=== PATIENT | male | born 1950 | race Caucasian/White ===

== ENCOUNTER → 2021-04-21 | Outpatient (CLI) | payer MEDICARE, OTHER ==
[2021-04-21 15:27] LABS: BASO # 0.1 x10^3/uL (0.0-0.2); BASO % 1 % (0-3); EOS # 0.2 x10^3/uL (0.0-0.7); EOS % 2 % (0-3); HEMATOCRIT 46.5 % (39.0-53.0); LYMPH # 2.2 x10^3/uL (1.0-4.8); LYMPH % 24 % (24-48); MEAN CORPUSCULAR HEMOGLOBIN 31 pg (25-35); MEAN CORPUSCULAR HGB CONC 34 g/dL (31-37); MEAN CORPUSCULAR VOLUME 90 fL (79-100); MONO # 0.6 x10^3/uL (0.0-1.1); MONO % 6 % (0-9); NEUT # 6.1 x10^3/uL (1.8-7.7); NEUT % 67 % (31-73); PLATELET COUNT 510 x10^3/uL (140-400); RED BLOOD COUNT 5.17 x10^6/uL (4.30-5.70); RED CELL DISTRIBUTION WIDTH 14.7 % (11.5-14.5); WHITE BLOOD COUNT 9.2 x10^3/uL (4.0-11.0)
[2021-04-21 15:28] LABS: BILIRUBIN,URINE NEGATIVE (NEG); CLARITY,URINE CLEAR; COLOR,URINE YELLOW; NITRITE,URINE NEGATIVE (NEG); PH,URINE 5.5 (<5.0-8.0); PROTEIN,URINE NEGATIVE (NEG-TRACE); UROBILINOGEN,URINE 0.2 mg/dL (0.2 mg/dL)
[2021-04-21 15:46] LABS: CALCIUM 9.6 mg/dL (8.5-10.1); CREATININE 1.3 mg/dL (0.7-1.3); GFR 54.9; POTASSIUM 3.8 mmol/L (3.5-5.1)
[2021-04-21 15:51] LABS: ALBUMIN 4.3 g/dL (3.4-5.0); ALBUMIN/GLOBULIN RATIO 1.2 (1.0-1.7); TOTAL BILIRUBIN 0.3 mg/dL (0.2-1.0); TOTAL PROTEIN 7.9 g/dL (6.4-8.2)
[2021-04-21 16:22] LABS: BACTERIA,URINE FEW /HPF (0-FEW)
== END ==
LOC: ONCLAB 14:55
PROVIDERS: ATTEND Internal Medicine Hematology & Oncology
DX: Z12.5 Encounter for screening for malignant neoplasm of prostate (principal); C34.32 Malignant neoplasm of lower lobe, left bronchus or lung; R31.9 Hematuria, unspecified
CPT/HCPCS: 36415; 80053; 81001; 85025; G0103

== ENCOUNTER → 2021-04-25 | Outpatient (CLI) | payer MEDICARE, OTHER ==
[~2021-04-25] MED LIST: IOHEXOL 240 MG/ML 50ML VIAL. PO ONE; IOHEXOL 300 MG/ML 100ML VIAL. IV ONE
--- NOTE | 2021-04-25 19:14 | RAD ---
CT scan of the chest, abdomen and pelvis with contrast 04/25/2021 CLINICAL HISTORY: Lung cancer. TECHNIQUE: After the oral and intravenous administration of contrast, contiguous, 5 mm axial sections were obtained through the chest, abdomen and pelvis. 60 cc Omnipaque 300 were administered intraveno usly this examination. One or more of the following individualized dose reduction techniques were utilized for this study: 1. Automated exposure control. 2. Adjustment of the mA and/or kV according to patient size. 3. Use of iterative reconstruction technique. FINDINGS: No previous studies are available for comparison. The patient is post left lower lobectomy. No hilar, mediastinal or axillary lymphadenopathy is seen. Atherosclerotic calcification of the thoracic aorta and its branches is noted. The thoracic aorta is mildly tortuous but tapers normally. The heart is normal in size. Subsegmental atelectasis and/or scarring is seen involving the left lower lobe and inferior left uppe r lobe. No recurrent mass is seen. No area of consolidation, pneumothorax or pleural effusion is note d. The liver parenchyma has a decreased attenuation consistent with fatty saturation. The spleen, pancre as, and adrenal glands are within normal limits. Rounded low-attenuation lesions are seen involving b oth kidneys, right greater than left, which measure 1 to 10 cm in size. These likely represent cysts. No further imaging evaluation is recommended. Nonobstructing calculi are seen involving both kidneys . These measure 2 to 5 mm in size. Atherosclerotic calcification abdominal aorta is seen. The abdominal aorta tapers normally. No retrop eritoneal lymphadenopathy is seen. The gallbladder is contracted. No free fluid or free air is seen w ithin the abdomen. There is no evidence of bowel obstruction. The appendix is well-visualized and is within normal limits. Images through pelvis demonstrate the urinary bladder distended with urine. The prostate gland is enl arged likely related to BPH. Calcifications are seen within the prostate gland. Calcifications are se en within the pelvis consistent with phleboliths. No pelvic or inguinal lymphadenopathy is seen. Very mild S-shaped curvature of the thoracolumbar spine is seen. Degenerative changes are seen involving the thoracic and throughout the lumbar spine. Old healed left-sided rib fractures are noted. The rodríguez ent is post laminectomy, discectomy and fusion using pedicle screws, stabilizing rods and bone graft material at L4-5. IMPRESSION: There is no CT evidence of recurrent or metastatic disease involving the chest, abdomen o r pelvis. Electronically signed by: Nikita Lee MD (04/25/2021 7:11 PM) [id number]
== END ==
LOC: CT 11:50
PROVIDERS: ATTEND Internal Medicine Hematology & Oncology
DX: C34.32 Malignant neoplasm of lower lobe, left bronchus or lung (principal); N20.0 Calculus of kidney; J98.11 Atelectasis; I70.0 Atherosclerosis of aorta; K82.0 Obstruction of gallbladder; N32.89 Other specified disorders of bladder; N42.89 Other specified disorders of prostate
CPT/HCPCS: 71260; 74177; Q9966; Q9967

== ENCOUNTER 2021-06-11 03:08 | Emergency (ER) | payer MEDICARE, OTHER ==
[~2021-06-11] VITALS: Ht 177.8 cm; Wt 91.0 kg
[2021-06-11] MEDS ORDERED: MORPHINE SULFATE 4 MG/ML INJ. IVP ONE (03:30)
--- NOTE | 2021-06-11 03:39 | PHYS DOC ---
General Adult EDM: Chief Complaint: MECHANICAL FALL HPI: HPI: Patient is a 70 year old male who presents with neck pain and back pain after a fall from a ladder. States that he is probably 5 feet in the air when he fell backwards. States he hit his head on the way down on a table, then hit his head again on the floor. States he did lose consciousness. He is unsure for how long. Woke up on the floor with neck pain and back pain. Neck pain and back pain is worsened since the fall happened approximately 10 AM on 06/10. States that he had brief tingling in his lower extremities, but not his upper extremities. This is resolved. States that all 4 extremities feel slightly weaker than usual. Denies any shortness of breath or anterior chest pain. He has been able to ambulate since the fall. Review of Systems: Review of Systems: Constitutional: Denies fever or chills. [] Eyes: Denies change in visual acuity. [] HENT: Denies nasal congestion or sore throat. [] Respiratory: Denies cough or shortness of breath. [] Cardiovascular: Denies chest pain or edema. [] GI: Denies abdominal pain, nausea, vomiting, bloody stools or diarrhea. [] : Denies dysuria. [] Musculoskeletal: Reports neck pain, back pain, pelvic pain. Integument: Denies rash. [] Neurologic: Reports headache and loss of consciousness. Reports now resolved sensory changes and generalized weakness. Endocrine: Denies polyuria or polydipsia. [] Lymphatic: Denies swollen glands. [] Psychiatric: Denies depression or anxiety. [] Heart Score: C/O Chest Pain: No Risk Factors: Risk Factors: DM, Current or recent (<one month) smoker, HTN, HLP, family history of CAD, obesity. Risk Scores: Score 0 - 3: 2.5% MACE over next 6 weeks - Discharge Home Score 4 - 6: 20.3% MACE over next 6 weeks - Admit for Clinical Observation Score 7 - 10: 72.7% MACE over next 6 weeks - Early Invasive Strategies Current Medications: Current Medications Medications (Trade) Dose Ordered Sig/Royal Start Time Stop Time Status Last Admin Dose Admin Morphine Sulfate (Morphine Sulfate) 4 mg 1X ONCE 06/11/21 03:30 06/11/21 03:31 UNV Allergies: Allergies: Allergies Uncoded Allergies Type Severity Reaction Last Updated Verified CODIENE Allergy Intermediate 04/25/21 PENICILLIN Allergy Intermediate 04/25/21 Physical Exam: PE: Constitutional: Well developed, well nourished, no acute distress, non-toxic appearance. [] Eyes: PERRLA, EOMI, conjunctiva normal, no discharge. [] Neck: C-spine immobilized in collar Cardiovascular:Heart rate regular rhythm, no murmur [] Lungs & Thorax: Bilateral breath sounds clear to auscultation [] Abdomen: Bowel sounds normal, soft, no tenderness, no masses, no pulsatile masses. [] Skin: Warm, dry, no erythema, no rash. [] Back: Thoracic midline tenderness to palpation, no lumbar tenderness to palpation, but does report lumbar pain. Extremities: Normal ROM hips, knees, shoulders, elbows, wrists, ankles. Does complain of pain over the greater trochanters bilaterally as well as over the pubic symphysis with pressure. Neurologic: Alert and oriented X 3, normal motor function, normal sensory function, no focal deficits noted. 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 [] EKG: EKG: [] Radiology/Procedures: Radiology/Procedures: [] Impression: [facility] [address] [place] [address] IMAGING REPORT Signed PATIENT: AYDEN BURGOS ACCOUNT: [id number] : 1950 LOCATION: ER AGE: 70 SEX: M EXAM STATUS: REG ER ORD. PHYSICIAN: GIOVANA CAMPOS MD REASON: fall, loc, neck, back, pelvic pain PROCEDURE: CT HEAD AND CERVICAL SPINE WO CT Head W/O Contrast: History: Reason: fall, loc, neck, back, pelvic pain / Spl. Instructions: / History: Comparison: none Axial images were obtained without contrast. There is mild diffuse atrophy. There is no mass effect, extraaxial fluid collections or hydrocephalus. There is no focal loss of marie-white matter distinction to suggest acute ischemia, i.e. stroke. Impression: No acute findings. End impression CT C-Spine without contrast: Clinical History: Reason: fall, loc, neck, back, pelvic pain / Spl. Instructions: / History: Technique: Axial helical images of the cervical spine were obtained without contrast, axial coronal and sagittal reconstruction was performed. Findings: There is beam Alejandro artifact from hardware from prior anterior fusion of C3-C5 with overlying plate and screws and intervertebral device at C3-C4 and C4-C5. There is no loss of vertebral body stature. There is no prevertebral soft tissue swelling. The vertebral bodies are well aligned. The C1-C2 relationship is normal. The visualized osseous structures appear normal. Evaluation of the central canal is limited without contrast. There is multiple posterior disc bulges resulting in flattening of the thecal sac. There does not appear to be gross flattening of the cervical cord. There is marked narrowing of multiple neuroforamen. Impression: No acute findings. Clinical correlation suggested. PQRS Compliance Statement: One or more of the following individualized dose reduction techniques were utilized for this examination: 1. Automated exposure control 2. Adjustment of the mA and/or kV according to patient size 3. Use of iterative reconstruction technique Electronically signed by: Stephanie Gilbert III, MD (06/11/2021 4:36 AM) [facility] DICTATED and SIGNED BY: STEPHANIE GILBERT III, MD DATE: 06/11/21 [id number] [facility] [address] [place], [place] [id number] IMAGING REPORT Signed PATIENT: AYDEN BURGOS ACCOUNT: [id number] : 1950 LOCATION: ER AGE: 70 SEX: M EXAM STATUS: REG ER ORD. PHYSICIAN: GIOVANA CAMPOS MD REASON: fall, loc, neck, back, pelvic pain, HX LT LUNG CA AND SX TO LT LUNG, PROCEDURE: CT CHEST ABDOMEN PELVIS WO CT chest abdomen and pelvis without contrast: History: Pain status post fall Axial helical images of the chest, abdomen and pelvis were obtained without IV contrast. Comparison: none CT chest without contrast: There is diffuse emphysematous changes in the lungs. Linear opacities lung bases posteriorly is likely scar. There is a 3 mm pulmonary nodule right lower lobe. Similarly there is a 3 mm pulmonary nodule left upper lobe. There is no mediastinal lymphadenopathy or hematoma. There is no hilar lymphadenopathy. Impression: Pulmonary nodules could be noncalcified granuloma. Recommend a 6 month follow-up CT chest without contrast. End Impression CT ABDOMEN and pelvis without IV CONTRAST: Findings: Liver: Unremarkable Spleen: Unremarkable Pancreas: Unremarkable Adrenal Glands: Unremarkable Kidneys: There are small nonobstructive stones the renal pelvises bilaterally. There is an exophytic cyst arising from upper pole right kidney that measures 9.9 x 5.9 cm. Evaluation of stomach and bowel is limited without oral contrast. Evaluation of solid organs is limited without IV contrast. There is no mass or lymphadenopathy. There is no free air. There is no free fluid. The bladder appears normal. The prostate is mildly enlarged. The appendix is normal. The gallbladder appears normal. Impression: No acute findings. End impression PQRS Compliance Statement: One or more of the following individualized dose reduction techniques were utilized for this examination: 1. Automated exposure control 2. Adjustment of the mA and/or kV according to patient size 3. Use of iterative reconstruction technique Electronically signed by: Stephanie Gilbert III, MD (06/11/2021 4:44 AM) [facility] DICTATED and SIGNED BY: STEPHANIE GILBERT III, MD DATE: 06/11/21 [id number] Course & Med Decision Making: Course & Med Decision Making Pertinent Labs and Imaging studies reviewed. (See chart for details) Patient is 70-year-old male who presents with a fall from a ladder with head strike, LOC, neck pain, back pain, and pelvic tenderness to palpation. We will obtain CT head, neck, chest, abdomen, pelvis. 0338 CT without acute process. Will attempt to treat pain, road test, and hope to discharge. Patient and updated about pulmonary nodules and need for follow up. 0518 Lisa Disclaimer: Lisa Disclaimer: This electronic medical record was generated, in whole or in part, using a voice recognition dictation system. Departure Departure Impression: Primary Impression: Neck pain Additional Impressions: Back pain Fall from ladder Disposition: 01 HOME / SELF CARE / HOMELESS Condition: STABLE Referrals: UNKNOWN PCP NAME (PCP) Additional Instructions: There is a 3 mm pulmonary nodule right lower lobe. Similarly there is a 3 mm pulmonary nodule left upper lobe. Our radiologist recommends a follow up CT in 6 months. Please follow up with your primary care provider. Otherwise, your CT scan did not show any fractures or serious problems from your fall today. You likely have some bruising and muscular strains contributing to your pain. For pain please take Tylenol 1000 mg every 6 hours. For pain not controlled by Tylenol: -Oxycodone 5 mg every 4 hours as needed. This is a narcotic medication and can make you tired and impaired. Do not drive or operate machinery while taking oxycodone. It can also make you consitpated so please consider taking docusate and miralax (as directed by over the counter directions) to prevent constipation. Please try to take as little oxycodone as possible and wean yourself off as soon as you are able because it is an addictiv e medication. Scripts Oxycodone Hcl (OXYCODONE HCL) 5 Mg Capsule 5 MG PO PRN Q4-6HRS PRN for PAIN, #15 TAB 0 Refills Prov: GIOVANA CAMPOS MD 06/11/21 GIOVANA CAMPOS MD Jun 11, 2021 03:38
[2021-06-11 03:44] LABS: HEMATOCRIT 43.5 % (39.0-53.0); HEMOGLOBIN 14.9 g/dL (13.0-17.5); RED BLOOD COUNT 4.84 x10^6/uL (4.30-5.70); RED CELL DISTRIBUTION WIDTH 14.7 % (11.5-14.5); WHITE BLOOD COUNT 9.4 x10^3/uL (4.0-11.0)
[2021-06-11 03:56] LABS: CALCIUM 8.8 mg/dL (8.5-10.1); CREATININE 1.6 mg/dL (0.7-1.3); GFR 43.2; POTASSIUM 4.1 mmol/L (3.5-5.1)
--- NOTE | 2021-06-11 04:39 | RAD ---
CT Head W/O Contrast: History: Reason: fall, loc, neck, back, pelvic pain / Spl. Instructions: / History: Comparison: none Axial images were obtained without contrast. There is mild diffuse atrophy. There is no mass effect, extraaxial fluid collections or hydrocephalu s. There is no focal loss of marie-white matter distinction to suggest acute ischemia, i.e. stroke. Impression: No acute findings. End impression CT C-Spine without contrast: Clinical History: Reason: fall, loc, neck, back, pelvic pain / Spl. Instructions: / History: Technique: Axial helical images of the cervical spine were obtained without contrast, axial coronal and sagittal reconstruction was performed. Findings: There is beam Alejandro artifact from hardware from prior anterior fusion of C3-C5 with overlying plate and screws and intervertebral device at C3-C4 and C4-C5. There is no loss of vertebral body stature. There is no prevertebral soft tissue swelling. The vert ebral bodies are well aligned. The C1-C2 relationship is normal. The visualized osseous structures a ppear normal. Evaluation of the central canal is limited without contrast. There is multiple posterio r disc bulges resulting in flattening of the thecal sac. There does not appear to be gross flattening of the cervical cord. There is marked narrowing of multiple neuroforamen. Impression: No acute findings. Clinical correlation suggested. PQRS Compliance Statement: One or more of the following individualized dose reduction techniques were utilized for this examinat ion: 1. Automated exposure control 2. Adjustment of the mA and/or kV according to patient size 3. Use of iterative reconstruction technique Electronically signed by: Ace Block III, MD (06/11/2021 4:36 AM) [facility]
--- NOTE | 2021-06-11 04:47 | RAD ---
CT chest abdomen and pelvis without contrast: History: Pain status post fall Axial helical images of the chest, abdomen and pelvis were obtained without IV contrast. Comparison: none CT chest without contrast: There is diffuse emphysematous changes in the lungs. Linear opacities lung bases posteriorly is likel y scar. There is a 3 mm pulmonary nodule right lower lobe. Similarly there is a 3 mm pulmonary nodule left up per lobe. There is no mediastinal lymphadenopathy or hematoma. There is no hilar lymphadenopathy. Impression: Pulmonary nodules could be noncalcified granuloma. Recommend a 6 month follow-up CT chest without con trast. End Impression CT ABDOMEN and pelvis without IV CONTRAST: Findings: Liver: Unremarkable Spleen: Unremarkable Pancreas: Unremarkable Adrenal Glands: Unremarkable Kidneys: There are small nonobstructive stones the renal pelvises bilaterally. There is an exophytic cyst arising from upper pole right kidney that measures 9.9 x 5.9 cm. Evaluation of stomach and bowel is limited without oral contrast. Evaluation of solid organs is limit ed without IV contrast. There is no mass or lymphadenopathy. There is no free air. There is no free fluid. The bladder appears normal. The prostate is mildly enlarged. The appendix is normal. The gallbladder appears normal. Impression: No acute findings. End impression PQRS Compliance Statement: One or more of the following individualized dose reduction techniques were utilized for this examinat ion: 1. Automated exposure control 2. Adjustment of the mA and/or kV according to patient size 3. Use of iterative reconstruction technique Electronically signed by: Ace Block III, MD (06/11/2021 4:44 AM) [facility]
[2021-06-11] MEDS ORDERED: MORPHINE SULFATE 10 MG/ML VIAL. IVP ONE (05:15)
[2021-06-11 05:20] VITALS: BP 169/90
[2021-06-11] MEDS ORDERED: OXYC5CAP PO (05:27)
== END 2021-06-11 05:40 | disposition home or self-care (01) ==
LOC: ER 03:08
DX: M54.2 Cervicalgia (principal); M54.9 Dorsalgia, unspecified; R10.2 Pelvic and perineal pain; G89.11 Acute pain due to trauma; R53.1 Weakness; W11.XXXA Fall on and from ladder, initial encounter; Y93.89 Activity, other specified; Y92.89 Other specified places as the place of occurrence of the external cause; Y99.8 Other external cause status
CPT/HCPCS: 36415; 70450; 71250; 72125; 74176; 80048; 85027; 96374; 96376; 99284; J2270

== ENCOUNTER → 2021-08-01 | Outpatient (CLI) | payer MEDICARE, OTHER ==
[~2021-08-01] MED LIST changes: +CONTRAST GIVEN. MC PRN; +OXYC5CAP PO
--- NOTE | 2021-08-01 15:13 | RAD ---
EXAMINATION: CT chest, abdomen and pelvis with IV contrast. INDICATION:70 years, Male, lung cancer. Follow-up exam. TECHNIQUE: Axial CT images of the chest, abdomen and pelvis were obtained. Coronal and sagittal refor matted performed. COMPARISON: 04/25/2021. Exposure: One or more of the following individualized dose reduction techniques were utilized for thi s examination: 1. Automated exposure control 2. Adjustment of the mA and/or kV according to patient size 3. Use of iterative reconstruction technique. FINDINGS: CHEST: Central airways are patent. Unchanged mild pulmonary emphysema. Linear scarring in bibasilar lungs, u nchanged. No focal consolidation, pleural effusion or pneumothorax. Stable bilateral sub-5 mm solid p ulmonary nodules for example, 4 mm nodule in the left upper lobe. 4 mm nodule in the right lower lobe . Normal caliber thoracic aorta. Mesenteric arteries and portal vein are patent. Minimal coronary arter y atherosclerotic calcifications. No lymphadenopathy in the chest by size criteria. Unremarkable visu alized thyroid gland and esophagus. ABDOMEN/PELVIS: Diffuse hepatic steatosis. No suspicious focal hepatic lesion. Gallbladder, biliary ducts, spleen and pancreas are unremarkable. No adrenal nodule. Stable 9.7 x 6.0 cm simple right renal cyst. Additiona l, simple smaller bilateral renal cortical cysts are unchanged. Similar punctate nonobstructing bilat eral nephrolithiasis. No bowel obstruction. No lymphadenopathy. Mild aortoiliac atherosclerotic calcifications without dila tion or narrowing. Mesenteric arteries and portal vein are patent. No pneumoperitoneum or ascites. Un remarkable urinary bladder. Prostamegaly indents bladder base. MUSCULOSKELETAL STRUCTURES: No acute osseous process or suspicious lesion. Multilevel degenerative changes in the spine. Posterio r hardware fusion in the lower lumbar spine. Chronic left rib deformity. IMPRESSION: 1. No evidence of recurrent or metastatic disease. 2. Stable bilateral sub-5 mm pulmonary nodules. Continued attention follow-up examination. 3. Hepatic steatosis. 4. Bilateral renal cysts and nephrolithiasis. 5. Prostatomegaly. Electronically signed by: Sydnye Saha MD (08/01/2021 3:11 PM) [facility]
== END ==
LOC: CT 08:30
PROVIDERS: ATTEND Internal Medicine Hematology & Oncology
DX: R91.8 Other nonspecific abnormal finding of lung field (principal); K76.0 Fatty (change of) liver, not elsewhere classified; N40.0 Benign prostatic hyperplasia without lower urinary tract symptoms; N28.1 Cyst of kidney, acquired; N20.0 Calculus of kidney; J43.9 Emphysema, unspecified; M95.4 Acquired deformity of chest and rib; M47.819 Spondylosis without myelopathy or radiculopathy, site unspecified; Z98.1 Arthrodesis status
CPT/HCPCS: 71260; 74177; Q9966; Q9967

== ENCOUNTER → 2021-08-03 | Outpatient (CLI) | payer MEDICARE, OTHER ==
[~2021-08-03] MED LIST changes: -CONTRAST GIVEN. MC PRN; -IOHEXOL 240 MG/ML 50ML VIAL. PO ONE; -IOHEXOL 300 MG/ML 100ML VIAL. IV ONE
[2021-08-03 11:40] LABS: BASO # 0.1 x10^3/uL (0.0-0.2); BASO % 1 % (0-3); EOS # 0.1 x10^3/uL (0.0-0.7); EOS % 1 % (0-3); HEMATOCRIT 45.1 % (39.0-53.0); HEMOGLOBIN 15.5 g/dL (13.0-17.5); LYMPH # 1.8 x10^3/uL (1.0-4.8); LYMPH % 23 % (24-48); MEAN CORPUSCULAR HEMOGLOBIN 31 pg (25-35); MEAN CORPUSCULAR HGB CONC 34 g/dL (31-37); MEAN CORPUSCULAR VOLUME 90 fL (79-100); MONO # 0.6 x10^3/uL (0.0-1.1); MONO % 7 % (0-9); NEUT # 5.3 x10^3/uL (1.8-7.7); NEUT % 68 % (31-73); PLATELET COUNT 376 x10^3/uL (140-400); RED BLOOD COUNT 5.04 x10^6/uL (4.30-5.70); WHITE BLOOD COUNT 7.8 x10^3/uL (4.0-11.0)
[2021-08-03 11:48] LABS: CALCIUM 9.1 mg/dL (8.5-10.1); CREATININE 1.4 mg/dL (0.7-1.3); GFR 50.4; POTASSIUM 4.1 mmol/L (3.5-5.1)
[2021-08-03 11:55] LABS: ALBUMIN 4.1 g/dL (3.4-5.0); TOTAL BILIRUBIN 0.4 mg/dL (0.2-1.0); TOTAL PROTEIN 8.1 g/dL (6.4-8.2)
== END ==
LOC: ONCLAB 11:13
PROVIDERS: ATTEND Internal Medicine Hematology & Oncology
DX: C61 Malignant neoplasm of prostate (principal); C34.32 Malignant neoplasm of lower lobe, left bronchus or lung
CPT/HCPCS: 80053; 84153; 84154; 85025

== ENCOUNTER → 2021-10-30 | Outpatient (CLI) | payer MEDICARE, OTHER ==
[~2021-10-30] MED LIST changes: +CONTRAST GIVEN. MC PRN; +IOHEXOL 240 MG/ML 50ML VIAL. PO ONE; +IOHEXOL 300 MG/ML 100ML VIAL. IV ONE
--- NOTE | 2021-10-30 14:52 | RAD ---
EXAMINATION: CT chest, abdomen and pelvis with IV contrast. INDICATION:70 years, Male, pulmonary adenocarcinoma. Follow-up exam. TECHNIQUE: Axial CT images of the chest, abdomen and pelvis were obtained. Coronal and sagittal refor matted performed. COMPARISON: 08/01/2021 and multiple priors. Exposure: One or more of the following individualized dose reduction techniques were utilized for thi s examination: 1. Automated exposure control 2. Adjustment of the mA and/or kV according to patient size 3. Use of iterative reconstruction technique. FINDINGS: CHEST: Central airways are patent. Unchanged mild pulmonary emphysema. Linear scarring in bibasilar lungs, u nchanged. No focal consolidation, pleural effusion or pneumothorax. Stable bilateral sub-5 mm solid p ulmonary nodules for example, 4 mm nodule in the left upper lobe. 4 mm nodule in the right lower lobe . No cardiomegaly or pericardial effusion. Mild coronary artery atherosclerotic calcifications. Normal caliber thoracic aorta and pulmonary arteries. No lymphadenopathy in the chest by size criteria. Calc ified paraesophageal lymph node. Unremarkable visualized thyroid gland and esophagus. ABDOMEN/PELVIS: Diffuse hepatic steatosis. No suspicious focal hepatic lesion. Gallbladder, biliary ducts, spleen and pancreas are unremarkable. Nodular thickening of the left adrenal gland without discrete nodule, unc hanged. Right adrenal gland is unremarkable. Stable 9.7 x 6.0 cm simple right renal cyst. Additional, simple smaller bilateral renal cortical cysts are unchanged. Similar nonobstructing bilateral nephro lithiasis, measuring up to 4 mm. No bowel obstruction. Normal appendix. No lymphadenopathy. Mild aortoiliac atherosclerotic calcificat ions without dilation or narrowing. Mesenteric arteries and portal vein are patent. No pneumoperitone um or ascites. Unremarkable urinary bladder. Prostamegaly indents bladder base. MUSCULOSKELETAL STRUCTURES: No acute osseous process or suspicious lesion. Multilevel degenerative changes in the spine. Posterio r hardware fusion in the lower lumbar spine. Chronic left rib deformity. Unchanged paraspinal/periaor tic fat stranding at the level of T11 vertebral body. IMPRESSION: 1. No evidence of recurrent or metastatic disease. 2. Stable bilateral sub-5 mm pulmonary nodules. Continued attention follow-up examination. 3. Other chronic/incidental findings, as described above. Electronically signed by: Sydney Saha MD (10/30/2021 2:49 PM) [facility]
== END ==
LOC: CT 10:28
PROVIDERS: ATTEND Physician Assistant
DX: R91.8 Other nonspecific abnormal finding of lung field (principal); K76.0 Fatty (change of) liver, not elsewhere classified; J43.9 Emphysema, unspecified; I25.10 Atherosclerotic heart disease of native coronary artery without angina pectoris; I70.8 Atherosclerosis of other arteries; N28.1 Cyst of kidney, acquired; E27.8 Other specified disorders of adrenal gland; I89.8 Other specified noninfective disorders of lymphatic vessels and lymph nodes; N40.0 Benign prostatic hyperplasia without lower urinary tract symptoms; M95.4 Acquired deformity of chest and rib; M47.819 Spondylosis without myelopathy or radiculopathy, site unspecified; Z98.1 Arthrodesis status
CPT/HCPCS: 71260; 74177; Q9966; Q9967

== ENCOUNTER → 2021-11-01 | Outpatient (CLI) | payer MEDICARE, OTHER ==
[~2021-11-01] MED LIST changes: -CONTRAST GIVEN. MC PRN; -IOHEXOL 240 MG/ML 50ML VIAL. PO ONE; -IOHEXOL 300 MG/ML 100ML VIAL. IV ONE
[2021-11-01 11:26] LABS: BASO # 0.1 x10^3/uL (0.0-0.2); BASO % 1 % (0-3); EOS # 0.3 x10^3/uL (0.0-0.7); EOS % 3 % (0-3); HEMATOCRIT 44.8 % (39.0-53.0); HEMOGLOBIN 15.5 g/dL (13.0-17.5); LYMPH # 2.1 x10^3/uL (1.0-4.8); LYMPH % 26 % (24-48); MEAN CORPUSCULAR HEMOGLOBIN 31 pg (25-35); MEAN CORPUSCULAR HGB CONC 35 g/dL (31-37); MEAN CORPUSCULAR VOLUME 90 fL (79-100); MONO # 0.5 x10^3/uL (0.0-1.1); MONO % 6 % (0-9); NEUT # 5.2 x10^3/uL (1.8-7.7); NEUT % 64 % (31-73); PLATELET COUNT 443 x10^3/uL (140-400); RED BLOOD COUNT 5.01 x10^6/uL (4.30-5.70); RED CELL DISTRIBUTION WIDTH 14.8 % (11.5-14.5); WHITE BLOOD COUNT 8.1 x10^3/uL (4.0-11.0)
[2021-11-01 11:33] LABS: CALCIUM 9.5 mg/dL (8.5-10.1); CREATININE 1.3 mg/dL (0.7-1.3); GFR 54.9; POTASSIUM 4.3 mmol/L (3.5-5.1)
[2021-11-01 11:39] LABS: ALBUMIN 4.2 g/dL (3.4-5.0); ALBUMIN/GLOBULIN RATIO 1.1 (1.0-1.7); TOTAL BILIRUBIN 0.4 mg/dL (0.2-1.0); TOTAL PROTEIN 7.9 g/dL (6.4-8.2)
== END ==
LOC: ONCLAB 11:10
PROVIDERS: ATTEND Internal Medicine Hematology & Oncology
DX: C34.32 Malignant neoplasm of lower lobe, left bronchus or lung (principal)
CPT/HCPCS: 36415; 80053; 83615; 85025